=== PATIENT | female | born 1995 | race African-American/Black ===

== ENCOUNTER 2019-10-12 20:20 | Emergency (ER) | payer MEDICAID, OTHER ==
[~2019-10-12] VITALS: Ht 170.2 cm; Wt 82.0 kg
[~2019-10-12 20:20] MED LIST: ALBUTEROL
[2019-10-12 22:52] LABS: CLARITY URINE CLEAR (CLEAR); COLOR URINE YELLOW (YELLOW); KETONES URINE NEGATIVE (NEGATIVE); LEUKOCYTE ESTERASE URINE NEGATIVE (NEGATIVE); NITRITE URINE NEGATIVE (NEGATIVE); OCCULT BLOOD URINE 2+ (NEGATIVE); PROTEIN URINE NEGATIVE (NEGATIVE); SPECIFIC GRAVITY URINE 1.033 (1.005-1.030); UROBILINOGEN URINE 0.2 E.U./dL (0.2-1.0)
[2019-10-13] MEDS ORDERED: SODIUM CHLORIDE 0.9% 1,000 ML IV ONE (02:25)
[2019-10-13 02:55] LABS: BASOPHILS % 0.7 % (0.0-2.0); HEMATOCRIT. 35.7 % (36.0-48.0); MEAN CORPUSCULAR HEMOGLOBIN 27.3 pg (28.0-32.0); MEAN PLATELET VOLUME 7.8 fl (7.4-10.4); MONOCYTES % 11.8 % (2.0-8.0); NEUTROPHILS % 51.5 % (40.0-76.0); PLATELET 235 x1000/uL (130-400); RED BLOOD CELL COUNT 4.41 mill/uL (4.2-5.4); RED CELL DISTRIBUTION WIDTH 13.4 % (11.6-14.6)
[2019-10-13 02:57] LABS: CHLORIDE 109 mEq/L (98-107)
[2019-10-13 03:10] LABS: B-HCG QUANTITATIVE < 1 mIU/mL (<3)
[2019-10-13 06:44] VITALS: BP 103/68
== END 2019-10-13 06:59 | disposition home or self-care (01) ==
LOC: ER 20:20
DX: N93.9 Abnormal uterine and vaginal bleeding, unspecified (principal); R11.0 Nausea
CPT/HCPCS: 36415; 74176; 76830; 76856; 80053; 81003; 81025; 82962; 84702; 85025; 86850; 86900; 86901; 99284; J7030; Z7610